=== PATIENT | male | born 1940 | race Two or more races ===

== ENCOUNTER 2021-09-23 11:53 | Emergency (ER) | payer OTHER ==
[~2021-09-23] VITALS: Ht 162.6 cm; Wt 70.0 kg
[2021-09-23 18:31] LABS: Basophils # (auto) 0 10 ^3/uL (0-0.2); Basophils % (auto) 0.5 % (0.0-2.0); Eosinophils # (auto) 0.1 10 ^3/uL (0-0.8); Eosinophils % (auto) 1.3 % (0.0-7.0); Hematocrit 37.6 % (41.0-53.0); Hemoglobin 12.3 g/dL (13.5-17.5); Lymphocytes # (auto) 1.1 10 ^3/uL (0.4-5.4); Lymphocytes % (auto) 13.6 % (10.0-50.0); Mean Corpuscular Hemoglobin 30.7 pg (28.0-32.0); Mean Corpuscular Hgb Conc. 32.7 g/dL (32.0-36.0); Monocytes # (auto) 0.6 10 ^3/uL (0-1.3); Monocytes % (auto) 7.7 % (0.0-12.0); Neutrophils # (auto) 6.1 10 ^3/uL (1.6-8.6); Neutrophils % (auto) 76.9 % (37.0-80.0); Nucleated Red Blood Cells % 0.1 %
[2021-09-23 18:45] LABS: INR 1.04 (0.9-1.15); Partial Thromboplastin Time 30.9 sec (24.6-33.4)
[2021-09-23 18:46] LABS: Calcium 8.4 mg/dL (8.5-10.1)
[2021-09-23 18:49] LABS: BUN/Creatinine Ratio 25.4
[2021-09-23 18:52] LABS: Bilirubin, Total 0.3 mg/dL (0.2-1.0); Total Protein 7.3 g/dL (6.4-8.2)
[2021-09-23] MEDS ORDERED: hydrALAZINE HCL 20 MG/ML VL IV PRN (19:00)
[2021-09-23] MEDS ORDERED: ACETAMINOPHEN 325 MG TAB PO PRN (19:00)
[2021-09-24] MEDS ORDERED: LIDOCAINE 1%HCL (LOCAL ANESTH) 10 ML MDV ONE (08:09)
[2021-09-24 10:00] VITALS: BP 161/75
[2021-09-24 10:02] LABS: Bilirubin, Direct 0.2 mg/dL (0-0.2); Bilirubin, Total 0.5 mg/dL (0.2-1.0); Total Protein 7.7 g/dL (6.4-8.2)
[2021-09-26 14:14] LABS: Hepatitis A Ab IgM Negative
[2021-09-26 14:18] LABS: Hepatitis B Core IgM Negative
== END 2021-09-24 11:10 | disposition home or self-care (01) ==
LOC: ER 11:53 → EDBD 11:53 → ER 09-24 11:07
DX: R33.9 Retention of urine, unspecified (principal); Z20.822 Contact with and (suspected) exposure to COVID-19
CPT/HCPCS: 36415; 51702; 80053; 80076; 85025; 85610; 85730; 86703; 86705; 86709; 86803; 87426; 99284; J2001

== ENCOUNTER 2022-01-19 19:45 | Inpatient (IN) | payer OTHER, MEDICAID ==
[~2022-01-19] VITALS: Ht 162.6 cm; Wt 72.7 kg
[2022-01-19 21:23] LABS: Hemoglobin 12.7 g/dL (13.5-17.5); Mean Corpuscular Hemoglobin 30.8 pg (28.0-32.0); Mean Corpuscular Hgb Conc. 33.4 g/dL (32.0-36.0); Mean Corpuscular Volume 92.1 fL (80.0-100.0); Red Blood Cells 4.13 10^6/uL (4.5-5.90); Red Cell Distribution Width 13.7 % (11.8-14.3); White Blood Cell 16.8 10^3/uL (4.4-10.8)
[2022-01-19 21:33] LABS: Basophils % (manual) 0 (0.0-2.0); Blast Cells 0; Eosinophils % (manual) 0 (0-7); Metamyelocytes % 0; Myelocytes % 0; Promyelocytes % 0; Reactive Lymphocytes 0
[2022-01-19 21:47] LABS: INR 1.05 (0.9-1.15); Partial Thromboplastin Time 27.3 sec (24.6-33.4)
[2022-01-19 21:56] LABS: Band Neutrophils % (manual) 27; Lymphocytes % (manual) 1 (10.0-50.0); Monocytes % (manual) 2 (0-12)
[2022-01-19 22:01] LABS: Albumin 3.2 g/dL (3.4-5.0); Calcium 8.4 mg/dL (8.5-10.1); Magnesium 1.9 mg/dL (1.6-2.6); Potassium 3.5 mmol/L (3.5-5.1)
[2022-01-19 22:03] LABS: Total Protein 6.9 g/dL (6.4-8.2)
[2022-01-19 22:11] LABS: Urine Bacteria NONE SEEN /hpf (None Seen); Urine Blood 1+ /uL (Negative); Urine Mucus FEW (None Seen); Urine Specific Gravity 1.014 (1.001-1.035); Urine WBC 535 /hpf (0 - 3); Urine WBC Clumps PRESENT /hpf (None Seen)
[2022-01-20] MEDS ORDERED: ASPirin 325 MG TAB PO ONE (00:45)
[2022-01-20] MEDS ORDERED: HEPARIN SODIUM (PORCINE) 5000 UNITS/ML 1ML VIAL IV ONE (00:45)
[2022-01-20] MEDS ORDERED: cefTRIAXone 1GM/50ML D5W 50 ML IV ONE (00:45)
[2022-01-20] MEDS ORDERED: ONDANSETRON HCL 4 MG/2 ML VIAL IV PRN (01:30)
[2022-01-20] MEDS ORDERED: NITROGLYCERIN 0.4 MG SL TAB SL PRN (01:30)
[2022-01-20] MEDS ORDERED: MORPHINE SULFATE INJ 2 MG/ml SYRG IV PRN ×2 (01:30)
[2022-01-20] MEDS ORDERED: SODIUM CHLORIDE 0.9% 1,000 ML IV ONE (01:45)
[2022-01-20] MEDS: HEPARIN DRIP/D5W 100UNITS/ML 250 ML IV SCH ×3 (02:07→09:19)
[2022-01-20] MEDS: IPRATROPIUM BROM 0.5 MG/2.5ML INH SOL NEB PRN ×3 (05:41→18:42)
[2022-01-20] MEDS: ALBUTEROL SULF 2.5 MG/0.5ML(0.5%) NEB SOLN NEB SCH ×3 (05:41→18:42)
[2022-01-20 06:33] VITALS: BP 123/59
[2022-01-20 08:50] LABS: Basophils # (auto) 0 10 ^3/uL (0-0.2); Basophils % (auto) 0.3 % (0.0-2.0); Eosinophils # (auto) 0.1 10 ^3/uL (0-0.8); Eosinophils % (auto) 0.3 % (0.0-7.0); Hematocrit 36.7 % (41.0-53.0); Hemoglobin 12.4 g/dL (13.5-17.5); Lymphocytes % (auto) 6.1 % (10.0-50.0); Mean Corpuscular Hemoglobin 31.1 pg (28.0-32.0); Mean Corpuscular Hgb Conc. 33.7 g/dL (32.0-36.0); Mean Corpuscular Volume 92.5 fL (80.0-100.0); Monocytes # (auto) 1.2 10 ^3/uL (0-1.3); Monocytes % (auto) 6.9 % (0.0-12.0); Neutrophils # (auto) 14.7 10 ^3/uL (1.6-8.6); Neutrophils % (auto) 86.4 % (37.0-80.0); Red Blood Cells 3.97 10^6/uL (4.5-5.90); Red Cell Distribution Width 13.9 % (11.8-14.3)
[2022-01-20 09:12] LABS: INR 1.13 (0.9-1.15)
[2022-01-20 09:29] LABS: Albumin 2.8 g/dL (3.4-5.0); BUN/Creatinine Ratio 27.3; Bilirubin, Total 1.1 mg/dL (0.2-1.0); Calcium 8.2 mg/dL (8.5-10.1); Potassium 4.6 mmol/L (3.5-5.1); Total Protein 6.1 g/dL (6.4-8.2)
[2022-01-20] MEDS ORDERED: ASPirin 81 mg TAB PO ONE (09:45)
[2022-01-20] MEDS ORDERED: HEPARIN DRIP/D5W 100UNITS/ML 250 ML IV SCH (10:00)
[2022-01-20] MEDS ORDERED: cefTRIAXone 1GM/50ML D5W 50 ML IV SCH (10:00)
[2022-01-20] MEDS: PIPERACILLIN-TAZOB 3.375GM 100 ML IV SCH ×2 (10:50→18:51)
[2022-01-20] MEDS ORDERED: VANCOMYCIN PER PHARMACY 0 MG IV SCH (11:00)
[2022-01-20] MEDS ORDERED: VANCOMYCIN 1GM/250ML 250 ML IV ONE (11:15)
[2022-01-20] MEDS: ENOXAPARIN SOD 40 MG/0.4 ML SYRINGE SC SCH (13:24)
[2022-01-20 14:51] LABS: INR 1.11 (0.9-1.15); Partial Thromboplastin Time 29.1 sec (24.6-33.4)
[2022-01-20 22:00] VITALS: BP 160/70
[2022-01-20] MEDS ORDERED: CARB25TA77 PO (22:06)
[2022-01-20] MEDS ORDERED: METO-289 PO (22:06)
[2022-01-20 22:07] VITALS: BP 160/70
[2022-01-20] MEDS: ATORVASTATIN 20 MG TAB PO SCH (22:21)
[2022-01-21] MEDS: ALBUTEROL SULF 2.5 MG/0.5ML(0.5%) NEB SOLN NEB SCH ×4 (00:36→20:14)
[2022-01-21] MEDS: IPRATROPIUM BROM 0.5 MG/2.5ML INH SOL NEB PRN ×4 (00:36→20:14)
[2022-01-21] MEDS: VANCOMYCIN 1GM/250ML 250 ML IV SCH ×2 (01:30→16:00)
[2022-01-21] MEDS: PIPERACILLIN-TAZOB 3.375GM 100 ML IV SCH ×3 (02:45→18:00)
[2022-01-21 05:00] VITALS: BP 148/71
[2022-01-21 06:01] LABS: Basophils # (auto) 0 10 ^3/uL (0-0.2); Basophils % (auto) 0.2 % (0.0-2.0); Eosinophils # (auto) 0.1 10 ^3/uL (0-0.8); Eosinophils % (auto) 1.2 % (0.0-7.0); Hemoglobin 11.8 g/dL (13.5-17.5); Lymphocytes # (auto) 0.7 10 ^3/uL (0.4-5.4); Lymphocytes % (auto) 7.9 % (10.0-50.0); Mean Corpuscular Hemoglobin 31.4 pg (28.0-32.0); Mean Corpuscular Hgb Conc. 33.8 g/dL (32.0-36.0); Mean Corpuscular Volume 92.7 fL (80.0-100.0); Monocytes # (auto) 0.5 10 ^3/uL (0-1.3); Monocytes % (auto) 6.5 % (0.0-12.0); Neutrophils # (auto) 6.9 10 ^3/uL (1.6-8.6); Neutrophils % (auto) 84.2 % (37.0-80.0); Red Blood Cells 3.77 10^6/uL (4.5-5.90); Red Cell Distribution Width 13.4 % (11.8-14.3); White Blood Cell 8.2 10^3/uL (4.4-10.8)
[2022-01-21 06:29] LABS: Albumin 2.8 g/dL (3.4-5.0); Calcium 8.1 mg/dL (8.5-10.1); Potassium 3.7 mmol/L (3.5-5.1)
[2022-01-21 07:07] LABS: BUN/Creatinine Ratio 26.3; Bilirubin, Total 0.9 mg/dL (0.2-1.0); Total Protein 6.7 g/dL (6.4-8.2)
[2022-01-21 09:00] VITALS: BP 170/77
[2022-01-21] MEDS: ENOXAPARIN SOD 40 MG/0.4 ML SYRINGE SC SCH (09:58)
[2022-01-21] MEDS: ASPirin 81 mg TAB PO SCH (09:58)
[2022-01-21] MEDS ORDERED: hydrALAZINE HCL 20 MG/ML VL IV PRN (10:45)
[2022-01-21] MEDS ORDERED: ASPI-325 PO (11:04)
[2022-01-21] MEDS ORDERED: LISI20TA28 PO (11:04)
[2022-01-21] MEDS ORDERED: ATOR20TA50 PO (11:04)
[2022-01-21] MEDS ORDERED: INVANZ IV (11:04)
[2022-01-21] MEDS ORDERED: CAR3125T PO (11:04)
[2022-01-21] MEDS ORDERED: ATOR20TA PO (11:04)
[2022-01-21] MEDS: LISINOPRIL 5 MG TAB PO SCH (11:15)
[2022-01-21] MEDS: CARVEDILOL 3.125 MG TAB PO SCH ×2 (11:16→22:49)
[2022-01-21 13:00] VITALS: BP 140/73
[2022-01-21 16:24] VITALS: BP 142/64
[2022-01-21 16:47] VITALS: BP 150/80
[2022-01-21 22:00] VITALS: BP 118/77
[2022-01-21] MEDS: ATORVASTATIN 20 MG TAB PO SCH (22:49)
[2022-01-22] MEDS: ALBUTEROL SULF 2.5 MG/0.5ML(0.5%) NEB SOLN NEB SCH ×3 (00:26→13:29)
[2022-01-22] MEDS: PIPERACILLIN-TAZOB 3.375GM 100 ML IV SCH ×3 (02:00→18:00)
[2022-01-22 05:00] VITALS: BP 139/75
[2022-01-22 05:13] LABS: Basophils # (auto) 0 10 ^3/uL (0-0.2); Basophils % (auto) 0.3 % (0.0-2.0); Eosinophils # (auto) 0.2 10 ^3/uL (0-0.8); Eosinophils % (auto) 4.3 % (0.0-7.0); Hematocrit 34.9 % (41.0-53.0); Hemoglobin 11.8 g/dL (13.5-17.5); Lymphocytes # (auto) 0.8 10 ^3/uL (0.4-5.4); Lymphocytes % (auto) 13.2 % (10.0-50.0); Mean Corpuscular Hemoglobin 31.4 pg (28.0-32.0); Mean Corpuscular Hgb Conc. 33.9 g/dL (32.0-36.0); Mean Corpuscular Volume 92.7 fL (80.0-100.0); Monocytes # (auto) 0.6 10 ^3/uL (0-1.3); Monocytes % (auto) 10.7 % (0.0-12.0); Neutrophils # (auto) 4.1 10 ^3/uL (1.6-8.6); Neutrophils % (auto) 71.5 % (37.0-80.0); Red Blood Cells 3.76 10^6/uL (4.5-5.90); Red Cell Distribution Width 13.7 % (11.8-14.3); White Blood Cell 5.7 10^3/uL (4.4-10.8)
[2022-01-22] MEDS: IPRATROPIUM BROM 0.5 MG/2.5ML INH SOL NEB PRN ×2 (05:58→13:29)
[2022-01-22] MEDS: VANCOMYCIN 1GM/250ML 250 ML IV SCH (06:51)
[2022-01-22 09:00] VITALS: BP 147/90
[2022-01-22] MEDS: ENOXAPARIN SOD 40 MG/0.4 ML SYRINGE SC SCH (09:20)
[2022-01-22] MEDS: LISINOPRIL 5 MG TAB PO SCH (09:21)
[2022-01-22] MEDS: ASPirin 81 mg TAB PO SCH (09:21)
[2022-01-22] MEDS: CARVEDILOL 3.125 MG TAB PO SCH (09:21)
[2022-01-22 13:00] VITALS: BP 142/64
[2022-01-22] MEDS ORDERED: CEFD300C2 PO (14:30)
[2022-01-22 16:42] VITALS: BP 171/80
[2022-01-22] MEDS ORDERED: cloNIDine HCL 0.1 MG TAB PO ONE (17:15)
[2022-01-22 18:39] VITALS: BP 132/64
== END 2022-01-22 19:00 | disposition home health service (06) | DRG 871 ==
LOC: EDBD 19:45 → ER 19:45 → TELE 01-20 01:37 → TELE-WESTW 01-20 21:05 → OBSVTOIN 01-21 09:14
PROVIDERS: ADMIT Internal Medicine; ATTEND Internal Medicine
PROC: 05HB33Z Insertion of Infusion Device into Right Basilic Vein, Percutaneous Approach (ICD-10-PCS; principal; 2022-01-21)
PROC: B54MZZA Ultrasonography of Right Upper Extremity Veins, Guidance (ICD-10-PCS; 2022-01-21)
DX: A41.51 Sepsis due to Escherichia coli [E. coli] (principal); I21.A1 Myocardial infarction type 2; N39.0 Urinary tract infection, site not specified; E86.0 Dehydration; Z20.822 Contact with and (suspected) exposure to COVID-19; E66.9 Obesity, unspecified; E78.5 Hyperlipidemia, unspecified; G20 Parkinson's disease; I10 Essential (primary) hypertension; Z68.32 Body mass index [BMI] 32.0-32.9, adult; B96.20 Unspecified Escherichia coli [E. coli] as the cause of diseases classified elsewhere
CPT/HCPCS: 36415; 71045; 80053; 80202; 81001; 83735; 83880; 84484; 85007; 85025; 85027; 85610; 85730; 86803; 87040; 87086; 87088; 87186; 87340; 87426; 87804; 93306; 94640; 96365; 96366; 96367; 96368; 96375; 99291; G0378; J0696; J2543